=== PATIENT | female | born 2005 | race Caucasian/White ===

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

== ENCOUNTER 2025-04-11 21:55 | Emergency (ER) | payer BC ==
[~2025-04-11] VITALS: Ht 165.1 cm; Wt 68.0 kg
[2025-04-11 22:00] VITALS: BP 125/81
[2025-04-11] MEDS ORDERED: TIZANIDINE HCL2 M1 PO (23:37)
== END 2025-04-11 23:51 | disposition home or self-care (01) ==
LOC: ER 21:55
DX: S29.012A Strain of muscle and tendon of back wall of thorax, initial encounter (principal); X50.0XXA Overexertion from strenuous movement or load, initial encounter
CPT/HCPCS: 99283; A9270

== ENCOUNTER → 2025-04-28 | Outpatient (CLI) | payer BC ==
[~2025-04-28] MED LIST: TIZANIDINE HCL2 M1 PO
[2025-04-28 19:49] LABS: Bacterial Vaginosis PCR Negative (NEGATIVE); Candida Group, PCR NOT DETECTED (NOT DETECT); Candida glabrata-krusei, PCR NOT DETECTED (NOT DETECT)
== END ==
LOC: LAB 16:20 → LAB SHORT 16:20
PROVIDERS: Obstetrics & Gynecology
DX: N89.8 Other specified noninflammatory disorders of vagina (principal)
CPT/HCPCS: 81515